=== PATIENT | female | born 1965 | race Caucasian/White ===

== ENCOUNTER 2016-06-04 16:12 | Emergency (ER) | payer OTHER ==
[~2016-06-04] VITALS: Ht 157.5 cm; Wt 63.6 kg
[~2016-06-04 16:12] MED LIST: LORA-303 PO
[2016-06-04 16:20] VITALS: BP 112/84; PULSE 97; RESP 12; O2SAT 97
--- NOTE | 2016-06-04 17:11 | ED.REPORT ---
HPI-Overdose/Alcohol Toxicity Date of Service Jun 04, 2016 ED Provider: Ash Norris MD Pt is homeless 51 y/o female with history of intermodal dispatcher alcohol abuse, depression , end stage liver disease, and anxiety who presents to the ED due to alcohol intoxication. Pt exhibits slurred speech, difficulty walking and is unable to provide relevant history in the ER. Pt was reportedly staying with friends, but they had a falling out. This resulted in her drinking at least a fifth since last night. [place] friends brought her to the ED because they did not want her in the cold tonight and were seeking a "safe haven" for her. The pt denies drinking anything but alcohol as well as taking any illicit drugs, and denies suicidal and homicidal ideation. Her initial alcohol level in the ED is 0.459. Nursing Notes Stated Complaint: ALCOHOL Chief Complaint: Substance Abuse Nursing Notes Reviewed: Yes ([employer], [employer] not reconciled) Allergies: Coded Allergies: No Known Allergies (Verified , 04/28/16) Scheduled Lorazepam (Ativan) 1 Mg Tablet 1 MG PO DIRECTED 2mg po q6hrs x 24hrs, then 1mg po q6hrs x 24hrs, then 1mg po q8hrs x 24hrs, then 1mg po q12hrs x 24hrs, then 1mg General Time Seen by Provider: 17:05 Chief Complaint Intoxicated, alcohol Hx Obtained From: Patient Arrived By: Walk-in Onset Occurred: Onset unknown Symptom Duration: Duration unknown Recent Healthcare: Recent doctor visit, Recent hospitalization Similar Sx Previous: Yes Past Medical History Past Medical History Notes: Most recent ED visits 04/22/16, 04/28/16, 04/29/16 for ETOH No admits or major complications from ETOH Past Medical History History of alcohol abuse Depresson and Anxiety Vertigo Known noncompliant end stage liver disease Past Surgical History Breast reduction Reports: Appendectomy Family History Noncontributory Smoking History Current Every Day Smoker Social History Alcohol Use: >5 per day ("drinking since high school") Drug Use: Denies drug use Other Social History: Good social support, Local resident, Homeless Ambulatory Status Independent Unable to Obtain History Unable to Obtain Due to: Intoxicated state Review of Systems Unable to Obtain ROS Intoxicated Physical Exam Initial Vital Signs Vital Signs (First) Date Time Temp Pulse Resp B/P Pulse Ox O2 Delivery O2 Flow Rate FiO2 06/04/16 16:20 36.4 97 12 112/84 97 Room Air Initial VS: Reviewed, Vital signs normal Head / Eyes: Atraumatic, Normocephalic, PERRL ENT: Mucous membranes moist, Conjunctiva normal, No scleral icterus Neck: Supple, Non-tender, Full range of motion General/Constitutional: Awake, Alert Alertness: Positive: Sleeping but arousable Behavior: Positive: Appears intoxicated moving all extremities without focal deficits cannot answer questions no physical signs of trauma Respiratory / Chest: Atraumatic, Breath sounds NL, Breath sounds = bilat, No respiratory distress adequate respirations Cardiovascular: Heart rate NL, Regular rhythm, Heart sounds NL Abdomen: Atraumatic, Soft, Non-tender Neurologic: No motor deficits, No sensory deficits Speech: Positive: Garbled, Slurred Psychiatric: Affect NL, Mood NL Skin: Atraumatic, Color NL, No rash, Warm, Dry Upper Extremity / MS: Atraumatic, Full range of motion Lower Extremity / Pelvis / MS: Atraumatic, Full range of motion, No edema Interpretation & Diagnostics Lab Results Interpretation Result Diagram: 06/04/160 06/04/16 1820 Test 06/04/16 17:46 06/04/16 18:20 Hold Urine Received (Received) White Blood Count 6.5th/mm3 (3.8-10.1) Red Blood Count 5.37mil/mm3 (3.90-5.20) Hemoglobin 16.9g/dL (12.0-15.6) Hematocrit 48.5% (35.0-46.0) Mean Corpuscular Volume 90.3fL (81-100) Mean Corpuscular Hemoglobin 31.5pg (27.0-35.0) Mean Corpuscular Hemoglobin Concent 34.8% (32.0-37.0) Red Cell Distribution Width 13.6% (12.3-15.4) Platelet Count 192bil/L (150-400) Neutrophils (%) (Auto) 43.1% (40-74) Lymphocytes (%) (Auto) 51.2% (14-46) Monocytes (%) (Auto) 3.4% (4-12) Eosinophils (%) (Auto) 1.5% (0-5) Basophils (%) (Auto) 0.5% (0-3) Sodium Level 145mEq/L (134-144) Potassium Level 3.7mEq/L (3.5-5.2) Chloride Level 100mEq/L (97-108) Carbon Dioxide Level 25mmol/L (18-29) Blood Urea Nitrogen 13mg/dL (6-24) Creatinine 0.55mg/dL (0.57-1.00) Estimat Glomerular Filtration Rate 168mL/min (>59) Glucose Level 94mg/dL (60-99) Calcium Level 8.6mg/dL (8.5-10.1) Magnesium Level 2.2mg/dL (1.6-2.6) Total Bilirubin 0.4mg/dL (0.0-1.2) Aspartate Amino Transf (AST/SGOT) 23U/L (0-50) Alanine Aminotransferase (ALT/SGPT) 15U/L (0-32) Alkaline Phosphatase 103U/L (25-150) Total Protein 7.7g/dL (6.4-8.4) Albumin 4.7g/dL (3.4-5.0) Hold Hong Top Tube Received (Received) Alcohol, Quantitative 459mg/dL (0-10) Lab Results Interpretation: CBC is normal CMP is normal, without overt findings of liver failure Alcohol severely elevated U tox negative Re-Eval/Medical Decision Med Decision/Clinical Course Assumed care at midnight from Dr. Norris. Patient is metabolized down to alcohol level of 150 or so and is fairly coherent. Not suicidal homicidal. She is currently homeless after losing her place of residence due to her drinking last night. She would like to go to crisis and this has been arranged, but not until 4 PM. She will be supported with lorazepam taper. Discharge now to wait bedtime at 4 PM. Lorazepam given now and lorazepam taper ordered to accompany her to crisis. This is a 51-year-old female with a history of alcoholism, so intoxicated she cannot provide initial history on my evaluation. The nurse tells me that the patient was brought by friends or friends/family with whom the patient been living, but who have asked the patient to move out when she became upset and irregular more heavily, and he did not feel that she was safe to leave outside in the freezing cold given her level of intoxication. She has no visible signs of trauma. Her speech is incredibly slurred, she is arousable but only mildly so and mainly falls back asleep cannot answer questions or follow commands. She smells of EtOH, but has no other physical exam findings. Lab work was obtained and is notable for severe intoxication, but is otherwise normal. The patient was observed and slowly began to arouse, on reevaluation her speech is more clear, but she starts to complain of withdrawal feeling anxious, and has a mild tremor. At this point [facility] would not commit to having a bad, they might possibly have one but are not ready to even consider until the patient's under 250. Additionally the [employer] [employer] indicates that that is potentially available is a dual diagnosis depression/chemical dependency bed, and the patient may not be a candidate without contact meant mental illness. Patient is receiving a dose of lorazepam. She has no prior hospitalizations for alcohol withdrawal. Internal and come being provider at change of shift pending ETOH metobolization and further reevaluation. Source of Hx: Old records Re-Evaluation/Progress : Time of Eval: 22:45 Re-Evaluation/Progress Note: Pt is awake and more alert. Speech is clear. Pt is withdrawn and waiting for her medication. She has no complaints at this time. Differential Diagnosis: Positive: Alcohol abuse, Anxiety, Intoxication, alcohol , Negative: Suicidal attempt, Suicidal gesture (Patient denies on re-eval (but still intoxicated)) Counseled Regarding: Diagnosis, Lab results, Need for admission Discharge & Departure Shift Change Sign-Out Patient Care Transferred: Yes Discussed Complaint(s): Yes Laboratory Evaluation: Lab evaluation discussed Response to Therapy: Improved Impression: Primary Impression: Alcohol intoxication Complication of substance-induced condition: uncomplicated Qualified Code: F10.120 - Alcohol abuse with intoxication, uncomplicated Additional Impressions: Alcohol withdrawal Complication of substance-induced condition: uncomplicated Qualified Code: F10.230 - Alcohol dependence with withdrawal, uncomplicated Alcohol abuse )( Condition at Discharge: No danger to self, No danger to others, No suicidal ideation, No homicidal ideation, Clear for alcohol rehab Disposition: Home Discharge Condition All VS Reviewed: Yes Condition: Stable Referrals: Lisa Mar (PCP) Care Transferred to: Dr. Tobar Care Transferred at: 00:00 Scribe Attestation Portions of this note were transcribed by Elmer Fisher and Erika Snyder I , Dr. Norris personally performed the history, physical exam and medical decision-making; I reviewed and confirmed the accuracy of the information in the transcribed note. Signed by: Erika Snyder and Veronique Harvey, and 0106. copies to: Lisa Mar Matthew F MD Jun 04, 2016 17:11 Elmer Fisher Jun 04, 2016 23:46 ERIKA SNYDER Jun 05, 2016 01:06 Tremayne Tobar MD Jun 05, 2016 07:03
[2016-06-04 18:38] LABS: BASOPHILS % (AUTO) 0.5 % (0-3); EOSINOPHILS % (AUTO) 1.5 % (0-5); MONOCYTES % (AUTO) 3.4 % (4-12); Mean Corpuscular Hemoglobin 31.5 pg (27.0-35.0); Mean Corpuscular Volume 90.3 fL (81-100); NEUTROPHILS % (AUTO) 43.1 % (40-74); Platelet Count 192 bil/L (150-400)
[2016-06-04 18:56] LABS: Magnesium 2.2 mg/dL (1.6-2.6)
[2016-06-04] MEDS ORDERED: LORazepam 2 mg Tablet PO ONE (23:25)
[2016-06-05 01:13] VITALS: BP 93/46; PULSE 125; RESP 12; O2SAT 91
[2016-06-05 05:32] VITALS: BP 106/72; PULSE 95; RESP 14; O2SAT 98
[2016-06-05] MEDS ORDERED: _LORazepam 2 MG Tablet PO SCH (06:40)
[2016-06-05] MEDS ORDERED: LORazepam 2 mg Tablet PO ONE (06:45)
[2016-06-05 09:17] VITALS: BP 130/78; PULSE 107; RESP 15; O2SAT 96
[2016-06-05 09:26] VITALS: BP 130/78; PULSE 107; RESP 15; O2SAT 96
== END 2016-06-05 06:45 | disposition home or self-care (01) ==
LOC: SED 16:12
DX: F10.230 Alcohol dependence with withdrawal, uncomplicated (principal); F17.200 Nicotine dependence, unspecified, uncomplicated; Z87.19 Personal history of other diseases of the digestive system; Z90.49 Acquired absence of other specified parts of digestive tract
CPT/HCPCS: 36415; 80053; 82075; 83735; 85025; 99283; G0480

== ENCOUNTER 2016-09-10 09:05 | Emergency (ER) | payer OTHER ==
[~2016-09-10] VITALS: Ht 157.5 cm; Wt 59.1 kg
[2016-09-10 09:20] VITALS: BP 105/82; PULSE 81; RESP 12; O2SAT 98
--- NOTE | 2016-09-10 09:28 | ED.REPORT ---
HPI-Medical Clearance Date of Service Sep 10, 2016 ED Provider: Isa Bradford MD A 51 year old female with history of EtOH abuse, depression, anxiety and end stage liver disease presents to the ED seeking clearance for [facility]. Patient was recently place in detox in 04/2016 and recently relapsed in 07/2016. She currently consumes a "couple bottles" of wine per day. Patient last drank this morning. Associated symptoms include shaking and appetite for the past few days. She also reports a recent injury to her LLQ. During previous periods of detox, patient has experienced tremors and chills. Patient spoke with [facility] on 09/08 but was unable to find placement due to lack of available beds. She denies fever, chills, cough, nausea, or vomiting. Nursing Notes Stated Complaint: INTOXICATION Chief Complaint: Substance Abuse Nursing Notes Reviewed: Yes Allergies: Coded Allergies: No Known Allergies (Verified , 04/28/16) Scheduled Lorazepam (Ativan) 1 Mg Tablet 1 MG PO DIRECTED 2mg po q6hrs x 24hrs, then 1mg po q6hrs x 24hrs, then 1mg po q8hrs x 24hrs, then 1mg po q12hrs x 24hrs, then 1mg General Time Seen by Provider: 09:30 Chief Complaint : Alcohol intoxication (Seeking detox) Hx Obtained From: Patient Arrived By: Walk-in Onset Occurred: 1 - 4 hours ago Symptom Duration: Since onset Location: : Abdomen Quality: Painful Severity: Current: Mild Severity: Maximum: Mild Associated with: Reports: Intoxication, Loss of appetite, Tremors Pertinent Negative: Pt denies other symptoms Recent Healthcare: No recent doctor visit, No recent hospitalization Past Medical History Past Medical History Notes: Most recent ED visits 04/22/16, 04/28/16, 04/29/16 for ETOH No admits or major complications from ETOH Past Medical History History of alcohol abuse Depresson Anxiety Vertigo Known noncompliant end stage liver disease Past Surgical History Breast reduction Reports: Appendectomy Family History Noncontributory Smoking History Current Every Day Smoker Social History Alcohol Use: >5 per day Drug Use: Denies drug use Other Social History: Good social support, Local resident, Homeless Ambulatory Status Independent Review of Systems Decreased appetite Constitutional: Denies: Chills, Fever GI: Reports: Abdominal pain (LLQ pain ), Denies: Nausea, Vomiting Neurologic: Reports: Shaking Complete sys rev & neg: except as marked. Physical Exam Initial Vital Signs Vital Signs (First) Date Time Temp Pulse Resp B/P Pulse Ox O2 Delivery O2 Flow Rate FiO2 09/10/16 09:20 36.6 81 12 105/82 98 Room Air Initial VS: Reviewed Head / Eyes: Atraumatic, Normocephalic, PERRL Neck: Supple, Non-tender, Full range of motion Extremities: Vascular intact, Neuro intact, No swelling, No tenderness Skin: Warm, Dry, No cyanosis Neurologic: Alert, Oriented, Nonfocal Psychiatric: Mood/affect normal, Behavior normal, Normal thought content General/Constitutional: Awake Respiratory / Chest: Atraumatic, Breath sounds NL, Breath sounds = bilat, No respiratory distress Cardiovascular: Heart rate NL, Regular rhythm, Heart sounds NL Abdomen: Atraumatic, Soft Trauma - General: Positive: Contusion (1 cm area subcutaneous to the left abdomen midway with a slight bruise ) Interpretation & Diagnostics Lab Results Interpretation Result Diagram: 09/10/16 1010 09/10/16 1010 Test 09/10/16 09:45 09/10/16 10:10 Hold Urine Received (Received) White Blood Count 5.0th/mm3 (3.8-10.1) Red Blood Count 4.32mil/mm3 (3.90-5.20) Hemoglobin 14.8g/dL (12.0-15.6) Hematocrit 42.7% (35.0-46.0) Mean Corpuscular Volume 98.8fL (81-100) Mean Corpuscular Hemoglobin 34.3pg (27.0-35.0) Mean Corpuscular Hemoglobin Concent 34.7% (32.0-37.0) Red Cell Distribution Width 14.5% (12.3-15.4) Platelet Count 255bil/L (150-400) Neutrophils (%) (Auto) 51.2% (40-74) Lymphocytes (%) (Auto) 38.3% (14-46) Monocytes (%) (Auto) 8.5% (4-12) Eosinophils (%) (Auto) 1.2% (0-5) Basophils (%) (Auto) 0.4% (0-3) Sodium Level 144mEq/L (134-144) Potassium Level 3.8mEq/L (3.5-5.2) Chloride Level 102mEq/L (97-108) Carbon Dioxide Level 23mmol/L (18-29) Blood Urea Nitrogen 15mg/dL (6-24) Creatinine 0.51mg/dL (0.57-1.00) Estimat Glomerular Filtration Rate 183mL/min (>59) Glucose Level 100mg/dL (60-99) Calcium Level 9.1mg/dL (8.5-10.1) Magnesium Level 2.0mg/dL (1.6-2.6) Total Bilirubin 0.3mg/dL (0.0-1.2) Aspartate Amino Transf (AST/SGOT) 30U/L (0-50) Alanine Aminotransferase (ALT/SGPT) 26U/L (0-32) Alkaline Phosphatase 78U/L (25-150) Total Protein 7.3g/dL (6.4-8.4) Albumin 4.9g/dL (3.4-5.0) Hold Hong Top Tube Received (Received) Drug Screen / Level Interp Urine positive THC Re-Eval/Medical Decision Med Decision/Clinical Course This patient presents requesting detox. She was medically cleared and there is a bed at [facility]. The patient still has alcohol on board and has not shown any significant symptoms of withdraw this point. Re-Evaluation/Progress #1: Time of Eval: 10:56 Patient Status: Condition improved Re-Evaluation/Progress Note: Patient is informed of the [employer] consult and the possible bed availability at [facility]. Re-Evaluation/Progress #2: Time of Eval: 11:32 Patient Status: Condition improved Re-Evaluation/Progress Note: Patient's questions are addressed. She understands and agrees with the plan to go to [facility] at 2pm. Counseled Regarding: Diagnosis, Lab results, Need for follow-up, When/why to return to ED Discharge & Departure Impression: Primary Impression: Alcohol dependence Substance use status: unspecified alcohol-induced disorder Qualified Code: F10.29 - Alcohol dependence with unspecified alcohol-induced disorder Disposition: Home Discharge Condition All VS Reviewed: Yes Condition: Improved Patient Instructions: Abuse of Alcohol (ED) Additional Instructions: Thank you for trusting us with your care this morning. Please go straight to your bed [facility] at 2pm following discharge. I highly recommend that you abstain from alcohol use. Use Ativan taper as prescribed. Please return to the ED if you begin to experience any new or worsening symptoms including any shortness of breath, dizziness, lightheadedness, chest pain, fever, chills, persistent nausea/vomiting. Good luck with your treatment! Referrals: Lisa Mar (PCP) [facility] Scribe Attestation Portions of this note were transcribed by Demetria Norman. I, Dr. Bradford personally performed the history, physical exam and medical decision-making; I reviewed and confirmed the accuracy of the information in the transcribed note. Signed by: Veronique Almonte, 09/10/16 1147. copies to: Lisa Mar ; [facility] Isa Bradford MD Sep 10, 2016 09:28 DEMETRIA NORMAN Sep 10, 2016 09:37
[2016-09-10 10:48] LABS: BASOPHILS % (AUTO) 0.4 % (0-3); EOSINOPHILS % (AUTO) 1.2 % (0-5); MONOCYTES % (AUTO) 8.5 % (4-12); Mean Corpuscular Hemoglobin 34.3 pg (27.0-35.0); Mean Corpuscular Volume 98.8 fL (81-100); NEUTROPHILS % (AUTO) 51.2 % (40-74); Platelet Count 255 bil/L (150-400)
[2016-09-10] MEDS ORDERED: LORazepam 1 mg Tablet PO ONE (11:35)
[2016-09-10 13:33] VITALS: BP 113/79; PULSE 99; RESP 16; O2SAT 97
== END 2016-09-10 13:35 | disposition home or self-care (01) ==
LOC: SED 09:05
DX: F10.29 Alcohol dependence with unspecified alcohol-induced disorder (principal); K72.90 Hepatic failure, unspecified without coma; F17.200 Nicotine dependence, unspecified, uncomplicated; F12.10 Cannabis abuse, uncomplicated; Z59.0 Homelessness; Z90.89 Acquired absence of other organs

== ENCOUNTER 2016-09-19 20:35 | Emergency (ER) | payer OTHER ==
[~2016-09-19] VITALS: Ht 157.5 cm; Wt 61.4 kg
[2016-09-19 20:44] VITALS: BP 120/88; PULSE 79; RESP 16; O2SAT 100
[2016-09-20 00:05] VITALS: BP 118/82; PULSE 82; RESP 16; O2SAT 100
--- NOTE | 2016-09-20 00:07 | ED.REPORT ---
HPI-Overdose/Alcohol Toxicity Date of Service September 20, 2016 ED Provider: Piyush Gibson MD Pt is a 51 y.o. homeless female with a hx of liver disease and ETOH abuse who presents to the ED seeking detox from ETOH. Pt states that her last ETOH use was 1 hour prior to arrival and that she consumed 1 pint of vodka. She states that she recently relapsed 2 days ago and typically drinks 1 pint of vodka a day. She reports associated nausea and vomiting. She denies a hx of serious withdrawal sx. Nursing Notes Stated Complaint: DETOX FOR [facility] Chief Complaint: Substance Abuse Nursing Notes Reviewed: Yes Allergies: Coded Allergies: No Known Allergies (Verified , 09/19/16) Scheduled Lorazepam (Ativan) 1 Mg Tablet 1 MG PO DIRECTED 2mg po q6hrs x 24hrs, then 1mg po q6hrs x 24hrs, then 1mg po q8hrs x 24hrs, then 1mg po q12hrs x 24hrs, then 1mg General Time Seen by Provider: 00:03 Chief Complaint Intoxicated, alcohol Initial Psychiatric Assessment: Deny suicidal intent/plan Hx Obtained From: Patient Arrived By: Walk-in Onset Occurred: 1 - 4 hours ago Symptom Duration: Since onset Similar Sx Previous: Yes Risk-Overdose/Alcohol Tox )( Suicide Risk Stratification RF Statements: Risk factors reviewed Past Medical History Past Medical History Notes: Most recent ED visits 04/22/16, 04/28/16, 04/29/16 for ETOH No admits or major complications from ETOH Past Medical History History of alcohol abuse Depression Anxiety Vertigo Known noncompliant end stage liver disease Past Surgical History Breast reduction Reports: Appendectomy Family History Noncontributory Smoking History Current Every Day Smoker Social History Alcohol Use: >5 per day Drug Use: Denies drug use Other Social History: Good social support, Local resident, Homeless Ambulatory Status Independent Review of Systems ETOH intoxication GI: Reports: Nausea, Vomiting Complete sys rev & neg: except as marked. Physical Exam Initial Vital Signs Vital Signs (First) Date Time Temp Pulse Resp B/P Pulse Ox O2 Delivery O2 Flow Rate FiO2 09/19/16 20:44 36.6 79 16 120/88 100 Room Air Initial VS: Reviewed, Vital signs normal Head / Eyes: Atraumatic, Normocephalic, PERRL Extremities: Vascular intact, Neuro intact Skin: Warm, Dry, No cyanosis General/Constitutional: Awake, Alert, Well appearing, Well developed, Well hydrated, Well nourished, Not toxic appearing Appearance / Presentation: Positive: Intoxicated Respiratory / Chest: Atraumatic, Breath sounds NL, Breath sounds = bilat, No respiratory distress Cardiovascular: Heart rate NL, Regular rhythm, Heart sounds NL, Peripheral circulation NL Abdomen: Atraumatic, Soft, Non-tender, No distention Small calcified hematoma to left lateral abdomen Neurologic: Oriented X3, Speech NL, No motor deficits Speech: Negative: Slurred Psychiatric: Affect NL, Mood NL, Not suicidal, Not homicidal, No hallucinations Interpretation & Diagnostics Lab Results Interpretation Result Diagram: 09/20/16 0035 09/20/16 0035 Test 09/20/16 00:35 White Blood Count 4.9th/mm3 (3.8-10.1) Red Blood Count 4.51mil/mm3 (3.90-5.20) Hemoglobin 15.6g/dL (12.0-15.6) Hematocrit 44.3% (35.0-46.0) Mean Corpuscular Volume 98.2fL (81-100) Mean Corpuscular Hemoglobin 34.6pg (27.0-35.0) Mean Corpuscular Hemoglobin Concent 35.2% (32.0-37.0) Red Cell Distribution Width 13.9% (12.3-15.4) Platelet Count 186bil/L (150-400) Neutrophils (%) (Auto) 42.7% (40-74) Lymphocytes (%) (Auto) 42.1% (14-46) Monocytes (%) (Auto) 9.7% (4-12) Eosinophils (%) (Auto) 3.7% (0-5) Basophils (%) (Auto) 0.8% (0-3) Prothrombin Time 9.7sec (8.1-12.5) Prothromb Time International Ratio 0.91ratio Sodium Level 139mEq/L (134-144) Potassium Level 5.3mEq/L (3.5-5.2) Chloride Level 95mEq/L (97-108) Carbon Dioxide Level 24mmol/L (18-29) Blood Urea Nitrogen 14mg/dL (6-24) Creatinine 0.53mg/dL (0.57-1.00) Estimat Glomerular Filtration Rate 175mL/min (>59) Glucose Level 98mg/dL (60-99) Calcium Level 9.3mg/dL (8.5-10.1) Magnesium Level 2.4mg/dL (1.6-2.6) Total Bilirubin 0.6mg/dL (0.0-1.2) Aspartate Amino Transf (AST/SGOT) 41U/L (0-50) Alanine Aminotransferase (ALT/SGPT) 22U/L (0-32) Alkaline Phosphatase 88U/L (25-150) Total Protein 7.6g/dL (6.4-8.4) Albumin 4.7g/dL (3.4-5.0) Lipase 53U/L (13-60) Lab Results Interpretation: Mild hyperkalemia associated with hemolysis. Re-Eval/Medical Decision Med Decision/Clinical Course Patient appears to have no medical competitions at the current time. There are no sobering services beds available. She is preregistered with sobering services and will check with them once or twice daily for an available bed. She is being discharged home, she is currently living in her car. Source of Hx: Old records Re-Evaluation/Progress #1: Time of Eval: 03:31 Re-Evaluation/Progress Note: Pt's KALEB is now 0.042 Re-Evaluation/Progress #2: Time of Eval: 04:19 Re-Evaluation/Progress Note: Pt rechecked. Discussed plan for discharge, pt understands and agrees with plan. Counseled Regarding: Diagnosis, Lab results, Need for follow-up, When/why to return to ED Discharge & Departure Impression: Primary Impression: Alcohol intoxication Complication of substance-induced condition: uncomplicated Qualified Code: F10.120 - Alcohol abuse with intoxication, uncomplicated Additional Impression: Alcohol abuse )( Condition at Discharge: No danger to self, No danger to others, No suicidal ideation, No homicidal ideation Disposition: Home Discharge Condition All VS Reviewed: Yes Condition: Improved Patient Instructions: Alcohol Withdrawal (ED) Additional Instructions: No beds are available right now it sobering services. Contact them twice daily until something becomes available. Do not drink alcohol. Referrals: Lisa Mar (PCP) Scribe Attestation Portions of this note were transcribed by Dr.Leibrand Noe personally performed the history, physical exam and medical decision-making; I reviewed and confirmed the accuracy of the information in the transcribed note. Signed by: Veronique Abdi, 09/20/16 and 0420. copies to: Lisa Mar Howard L MD September 20, 2016 00:07 GENEVIEVE ZAMORA September 20, 2016 00:14
[2016-09-20] MEDS ORDERED: Multivitamin w/Vit K Inj 10 ML, Thiamine Inj 100 MG, Folic Acid Inj 1 MG, Magnesium Sul... IV ONE ×5 (00:17)
[2016-09-20] MEDS: Ondansetron 2 mg/mL 2 mL Inj IVPUSH PRN ×2 (00:39→03:40)
[2016-09-20 00:54] LABS: BASOPHILS % (AUTO) 0.8 % (0-3); EOSINOPHILS % (AUTO) 3.7 % (0-5); MONOCYTES % (AUTO) 9.7 % (4-12); Mean Corpuscular Hemoglobin 34.6 pg (27.0-35.0); Mean Corpuscular Volume 98.2 fL (81-100); NEUTROPHILS % (AUTO) 42.7 % (40-74); Platelet Count 186 bil/L (150-400)
[2016-09-20 01:09] LABS: INR 0.91 ratio
[2016-09-20 01:18] LABS: Magnesium 2.4 mg/dL (1.6-2.6)
[2016-09-20 03:41] VITALS: BP 108/78; PULSE 88; RESP 18; O2SAT 100
[2016-09-20] MEDS ORDERED: LORazepam 2 mg Tablet PO ONE (05:45)
[2016-09-20 05:56] VITALS: BP 136/90; PULSE 75; RESP 18; O2SAT 96
== END 2016-09-20 05:44 | disposition home or self-care (01) ==
LOC: SED 20:35
DX: F10.120 Alcohol abuse with intoxication, uncomplicated (principal); F41.9 Anxiety disorder, unspecified; F17.200 Nicotine dependence, unspecified, uncomplicated; K72.90 Hepatic failure, unspecified without coma; E78.5 Hyperlipidemia, unspecified; Z59.0 Homelessness; Z90.89 Acquired absence of other organs
CPT/HCPCS: 36415; 80053; 82075; 83690; 83735; 85025; 85610; 96365; 96366; 96375; 99284; J2405; J3475; J7030

== ENCOUNTER 2016-09-24 09:21 | Emergency (ER) | payer OTHER ==
[~2016-09-24] VITALS: Ht 157.5 cm; Wt 61.4 kg
[2016-09-24 09:29] VITALS: BP 112/84; PULSE 98; RESP 12; O2SAT 100
--- NOTE | 2016-09-24 10:03 | ED.REPORT ---
HPI-Overdose/Alcohol Toxicity Date of Service September 24, 2016 ED Provider: Fareed Smith DO Pt is a 51 y.o. female with a hx of EOTH abuse and noncompliant end stage liver disease who presents to the ED with alcohol intoxication seeking clearance for a detox facility. Pt reports that her last ETOH use was at 0800 today. She reports that she has a bed at [facility] today and will be going to for further care on Monday. Pt currently reports shaking and chills. She denies a hx of withdrawal seizure. Nursing Notes Stated Complaint: DETOX Chief Complaint: Substance Abuse Nursing Notes Reviewed: Yes Allergies: Coded Allergies: No Known Allergies (Verified , 09/19/16) Scheduled Lorazepam (Ativan) 1 Mg Tablet 1 MG PO DIRECTED 2mg po q6hrs x 24hrs, then 1mg po q6hrs x 24hrs, then 1mg po q8hrs x 24hrs, then 1mg po q12hrs x 24hrs, then 1mg Scheduled PRN Lorazepam (Ativan) 1 Mg Tablet 1 MG PO TID PRN PRN For Anxiety Take two tablets by mouth every 6 hours for 24 hours, then take 1 tablet by mouth every 6 hours for 48 hours, then take 1 tablet by mouth every 12 hours for 24 hours. General Time Seen by Provider: 10:03 Chief Complaint Intoxicated, alcohol Modifying Factors: Intentional Initial Psychiatric Assessment: Deny suicidal intent/plan Hx Obtained From: Patient Arrived By: Walk-in Onset Occurred: 1 - 4 hours ago Symptom Duration: Since onset Severity: Current: No pain currently Severity: Maximum: No pain Similar Sx Previous: Yes Risk-Overdose/Alcohol Tox )( Suicide Risk Stratification : Alcohol use RF Statements: Risk factors reviewed Past Medical History Past Medical History Notes: Most recent ED visits 04/22/16, 04/28/16, 04/29/16 for ETOH No admits or major complications from ETOH Past Medical History History of alcohol abuse Depression Anxiety Vertigo Known noncompliant end stage liver disease Past Surgical History Breast reduction Reports: Appendectomy Family History Noncontributory Smoking History Current Every Day Smoker Social History Alcohol Use: >5 per day Drug Use: Denies drug use Other Social History: Good social support, Local resident, Homeless Ambulatory Status Independent Review of Systems Intoxication, ETOH Constitutional: Reports: Chills Neurologic: Reports: Shaking Complete sys rev & neg: except as marked. Physical Exam Initial Vital Signs Vital Signs (First) Date Time Temp Pulse Resp B/P Pulse Ox O2 Delivery O2 Flow Rate FiO2 09/24/16 09:29 36.4 98 12 112/84 100 Room Air Initial VS: Reviewed Head / Eyes: Atraumatic, Normocephalic, PERRL Extremities: Vascular intact, Neuro intact Skin: Warm, Dry, No cyanosis General/Constitutional: Awake, Alert, Well appearing, Well developed, Well hydrated, Well nourished, Not toxic appearing Appearance / Presentation: Positive: Intoxicated Smells of alcohol. Respiratory / Chest: Atraumatic, Breath sounds NL, Breath sounds = bilat, No respiratory distress Cardiovascular: Heart rate NL, Regular rhythm, Heart sounds NL, Peripheral circulation NL Abdomen: Atraumatic, Soft, Non-tender, No guarding, No rebound, No distention Neurologic: Oriented X3, Speech NL Speech: Negative: Slurred Psychiatric: Not suicidal, Not homicidal, No hallucinations Interpretation & Diagnostics Lab Results Interpretation Result Diagram: 09/24/16 1035 09/24/16 1035 Test 09/24/16 10:35 09/24/16 12:14 White Blood Count 7.4th/mm3 (3.8-10.1) Red Blood Count 4.56mil/mm3 (3.90-5.20) Hemoglobin 16.0g/dL (12.0-15.6) Hematocrit 44.6% (35.0-46.0) Mean Corpuscular Volume 97.8fL (81-100) Mean Corpuscular Hemoglobin 35.1pg (27.0-35.0) Mean Corpuscular Hemoglobin Concent 35.9% (32.0-37.0) Red Cell Distribution Width 13.8% (12.3-15.4) Platelet Count 189bil/L (150-400) Neutrophils (%) (Auto) 62.4% (40-74) Lymphocytes (%) (Auto) 31.2% (14-46) Monocytes (%) (Auto) 4.5% (4-12) Eosinophils (%) (Auto) 1.2% (0-5) Basophils (%) (Auto) 0.4% (0-3) Sodium Level 143mEq/L (134-144) Potassium Level 4.2mEq/L (3.5-5.2) Chloride Level 98mEq/L (97-108) Carbon Dioxide Level 21mmol/L (18-29) Blood Urea Nitrogen 13mg/dL (6-24) Creatinine 0.50mg/dL (0.57-1.00) Estimat Glomerular Filtration Rate 187mL/min (>59) Glucose Level 90mg/dL (60-99) Calcium Level 8.7mg/dL (8.5-10.1) Total Bilirubin 0.4mg/dL (0.0-1.2) Aspartate Amino Transf (AST/SGOT) 28U/L (0-50) Alanine Aminotransferase (ALT/SGPT) 14U/L (0-32) Alkaline Phosphatase 96U/L (25-150) Total Protein 7.3g/dL (6.4-8.4) Albumin 4.7g/dL (3.4-5.0) Thyroid Stimulating Hormone (TSH) 1.130uIU/mL (0.450-4.500) Hold Urine Received (Received) Re-Eval/Medical Decision Source of Hx: Old records Re-Evaluation/Progress : Time of Eval: 12:24 Re-Evaluation/Progress Note: Pt is clear for detox facility. [facility] bed available at 1300. Counseled Regarding: Diagnosis, Lab results, Need for follow-up, When/why to return to ED Discharge & Departure Impression: Primary Impression: Alcohol intoxication Complication of substance-induced condition: uncomplicated Qualified Code: F10.120 - Alcohol abuse with intoxication, uncomplicated Additional Impression: Alcohol withdrawal Complication of substance-induced condition: uncomplicated Qualified Code: F10.230 - Alcohol dependence with withdrawal, uncomplicated )( Condition at Discharge: No danger to self, No danger to others, No suicidal ideation, No homicidal ideation, Clear for alcohol rehab Disposition: Home Discharge Condition All VS Reviewed: Yes Condition: Improved Additional Instructions: Go straight to [facility]. Do not consume alcohol. I have provided a prescription for an alcohol taper for your withdrawal symptoms. I wish you the best with your recovery. Referrals: Lisa Mar (PCP) Scribe Attestation Portions of this note were transcribed by Genevieve Estevez. I, Dr. Smith personally performed the history, physical exam and medical decision-making; I reviewed and confirmed the accuracy of the information in the transcribed note. Signed by: Veronique Abdi, 09/24/16 and 1225 copies to: Lisa Mar Gary R DO September 24, 2016 10:03 GENEVIEVE ESTEVEZ September 24, 2016 10:26
[2016-09-24] MEDS ORDERED: LORazepam 2 mg Tablet PO ONE (10:25)
[2016-09-24 10:50] LABS: BASOPHILS % (AUTO) 0.4 % (0-3); EOSINOPHILS % (AUTO) 1.2 % (0-5); MONOCYTES % (AUTO) 4.5 % (4-12); Mean Corpuscular Hemoglobin 35.1 pg (27.0-35.0); Mean Corpuscular Volume 97.8 fL (81-100); NEUTROPHILS % (AUTO) 62.4 % (40-74); Platelet Count 189 bil/L (150-400)
[2016-09-24] MEDS ORDERED: LORA-303 PO (12:22)
[2016-09-24 14:26] VITALS: BP 108/75; PULSE 111; O2SAT 95
[2016-09-24 15:16] VITALS: BP 108/75; PULSE 111; RESP 12; O2SAT 95
== END 2016-09-24 15:17 | disposition home or self-care (01) ==
LOC: SED 09:21
DX: F10.220 Alcohol dependence with intoxication, uncomplicated (principal); F10.230 Alcohol dependence with withdrawal, uncomplicated; K72.90 Hepatic failure, unspecified without coma; F17.200 Nicotine dependence, unspecified, uncomplicated; Z59.0 Homelessness

== ENCOUNTER 2016-10-03 19:58 | Emergency (ER) | payer OTHER ==
[~2016-10-03] VITALS: Ht 157.5 cm; Wt 61.4 kg
[2016-10-03 20:05] VITALS: BP 153/102; PULSE 114; RESP 20; O2SAT 96
--- NOTE | 2016-10-03 22:24 | ED.REPORT ---
HPI-Overdose/Alcohol Toxicity Date of Service October 03, 2016 ED Provider: Piyush Gibson MD A 51 year old female with a medical history including alcohol abuse and noncompliant end stage liver disease presents to the ED requesting assistance with alcohol detox. The patient's last alcoholic drink was at 1100 this morning. She now reports tremor and anxiety. The patient denies other symptoms. She was in the ED with similar symptoms on 09/24/16 and was sent to [facility] with plans for admission to [facility] last week. The patient missed her appointment there but has a new admission date next month. She requests placement in [facility] today. Nursing Notes Stated Complaint: ALCOHOL WITHDRAWALS Chief Complaint: Substance Abuse Nursing Notes Reviewed: Yes Allergies: Coded Allergies: No Known Allergies (Verified , 10/03/16) Scheduled Lorazepam (Ativan) 1 Mg Tablet 1 MG PO DIRECTED 2mg po q6hrs x 24hrs, then 1mg po q6hrs x 24hrs, then 1mg po q8hrs x 24hrs, then 1mg po q12hrs x 24hrs, then 1mg Scheduled PRN Lorazepam (Ativan) 1 Mg Tablet 1 MG PO TID PRN PRN For Anxiety Take two tablets by mouth every 6 hours for 24 hours, then take 1 tablet by mouth every 6 hours for 48 hours, then take 1 tablet by mouth every 12 hours for 24 hours. General Time Seen by Provider: 22:22 Chief Complaint Other (Alcohol Detox) Hx Obtained From: Patient Arrived By: Walk-in Onset Occurred: 9 - 12 hours ago Symptom Duration: Since onset Severity: Current: No pain currently Severity: Maximum: No pain Pertinent Negative: Relieved by nothing Related History: Reports: Alcoholism, Anxiety, Depression, EtOH withdrawal Immunizations: Tetanus up to date Recent Healthcare: Recent doctor visit Similar Sx Previous: Yes Past Medical History Past Medical History Notes: Most recent ED visits 04/22/16, 04/28/16, 04/29/16 for ETOH No admits or major complications from ETOH Past Medical History History of alcohol abuse Depression Anxiety Vertigo Known noncompliant end stage liver disease Ovarian tumor Past Surgical History Breast reduction Ovarian tumor removal Reports: Appendectomy Family History Noncontributory Smoking History Current Every Day Smoker Social History Alcohol Use: >5 per day Drug Use: Denies drug use Other Social History: Good social support, Local resident, Homeless Ambulatory Status Independent Review of Systems + Alcohol detox assistance request Constitutional: Denies: Fever Respiratory: Denies: Non-productive cough, Shortness of breath GI: Denies: Diarrhea, Vomiting Neurologic: Reports: Shaking (Tremor) Psychiatric: Reports: Anxiety Complete sys rev & neg: except as marked. Physical Exam Initial Vital Signs Vital Signs (First) Date Time Temp Pulse Resp B/P Pulse Ox O2 Delivery O2 Flow Rate FiO2 10/03/16 20:05 36.4 114 20 153/102 96 Room Air Initial VS: Reviewed, Vital signs abnormal Head / Eyes: Atraumatic, Normocephalic ENT: Conjunctiva normal, No scleral icterus Neck: Supple, Full range of motion General/Constitutional: Awake, Alert Respiratory / Chest: Breath sounds NL, Breath sounds = bilat, No respiratory distress Cardiovascular: Regular rhythm, Heart sounds NL Heart Rate / Rhythm: Positive: Tachycardia Abdomen: Soft Tenderness/Guarding/Rebound: Positive: Tender RUQ... Well-healed abdominal scars Neurologic: Oriented X3, Speech NL Movement Abnormality: Positive: Tremor Skin: Warm, Dry Flushed Interpretation & Diagnostics Lab Results Interpretation Result Diagram: 10/04/16 0008 10/04/16 0008 Test 10/04/16 00:08 10/04/16 00:10 White Blood Count 5.3th/mm3 (3.8-10.1) Red Blood Count 4.42mil/mm3 (3.90-5.20) Hemoglobin 15.4g/dL (12.0-15.6) Hematocrit 42.3% (35.0-46.0) Mean Corpuscular Volume 95.7fL (81-100) Mean Corpuscular Hemoglobin 34.8pg (27.0-35.0) Mean Corpuscular Hemoglobin Concent 36.4% (32.0-37.0) Red Cell Distribution Width 13.8% (12.3-15.4) Platelet Count 214bil/L (150-400) Neutrophils (%) (Auto) 46.8% (40-74) Lymphocytes (%) (Auto) 43.7% (14-46) Monocytes (%) (Auto) 7.7% (4-12) Eosinophils (%) (Auto) 0.8% (0-5) Basophils (%) (Auto) 0.4% (0-3) Prothrombin Time 10.0sec (8.1-12.5) Prothromb Time International Ratio 0.94ratio Sodium Level 140mEq/L (134-144) Potassium Level 4.3mEq/L (3.5-5.2) Chloride Level 98mEq/L (97-108) Carbon Dioxide Level 20mmol/L (18-29) Blood Urea Nitrogen 13mg/dL (6-24) Creatinine 0.53mg/dL (0.57-1.00) Estimat Glomerular Filtration Rate 175mL/min (>59) Glucose Level 81mg/dL (60-99) Calcium Level 9.2mg/dL (8.5-10.1) Phosphorus Level 3.2mg/dL (2.5-4.9) Magnesium Level 2.1mg/dL (1.6-2.6) Total Bilirubin 0.5mg/dL (0.0-1.2) Aspartate Amino Transf (AST/SGOT) 28U/L (0-50) Alanine Aminotransferase (ALT/SGPT) 19U/L (0-32) Alkaline Phosphatase 90U/L (25-150) Total Protein 7.7g/dL (6.4-8.4) Albumin 4.8g/dL (3.4-5.0) Lipase 30U/L (13-60) Hold Hong Top Tube Received (Received) Lab values outside NL range: no clinical significance. Re-Eval/Medical Decision Med Decision/Clinical Course 51-year-old female who presents with intoxication and desires detox. She went through detox at [facility] last week and was supposed to go to [facility] in [place], but failed to accomplish the transportation portion of that plan. She now has been drinking for 4 days. She has a new bed date set up for October 21. She was reevaluated, rehydrated, and given a banana bag. She was given Valium per the [facility] protocol. Her labs were unremarkable. She is medically cleared and arrangements were made for her to be transferred to [facility] for repeat detox. Source of Hx: Old records Re-Evaluation/Progress #1: Time of Eval: 23:13 Patient Status: Condition improved Re-Evaluation/Progress Note: Patient rechecked. Discussed with patient [facility] consult. Re-Evaluation/Progress #2: Time of Eval: 00:50 Patient Status: Condition improved Re-Evaluation/Progress Note: Patient's IV is started and the banana bag is hung Waiting for first dose of Valium Re-Evaluation/Progress #3: Time of Eval: 04:01 Patient Status: Condition improved Re-Evaluation/Progress Note: Patient rechecked. Re-Evaluation/Progress #4: Time of Eval: 06:08 Patient Status: Condition improved Re-Evaluation/Progress Note: Discussed with patient lab results, diagnosis, and plan for discharge to [facility]. Follow-up and return to the ER instructions given. Patient agrees with plan for care and all questions were addressed. Consultation #1: Call Returned at: 23:[address] Associate Justice: Agrees with eval, Agrees with plan Note: [facility]: May have female bed at 1100 tomorrow. Consultation #2: Call Returned at: 06:[address] Associate Justice: Agrees with eval, Agrees with plan Note: [facility]: Has female bed now and will screen patient Counseled Regarding: Diagnosis, Lab results, Need for follow-up, When/why to return to ED Discharge & Departure Impression: Primary Impression: Acute alcohol intoxication Complication of substance-induced condition: uncomplicated Qualified Code: F10.120 - Alcohol abuse with intoxication, uncomplicated )( Condition at Discharge: No danger to self, No danger to others, No suicidal ideation, No homicidal ideation, Clear for alcohol rehab Disposition: Home Discharge Condition All VS Reviewed: Yes Condition: Improved Patient Instructions: Alcohol Withdrawal (GEN) Additional Instructions: Go directly to [facility]. See Ativan prepack for taper instructions. Referrals: Lisa Mar (PCP) Scribe Attestation Portions of this note were transcribed by Haylee Villegas. I, Dr. Gibson, personally performed the history, physical exam, and medical decision-making; I reviewed and confirmed the accuracy of the information in the transcribed note. Signed by: Veronique Fernández, 10/04/2016, 06:15 copies to: Lisa Mar Howard L MD October 03, 2016 22:24 HAYLEE VILLEGAS October 03, 2016 22:31
[2016-10-03] MEDS ORDERED: Thiamine Inj 100 MG, Folic Acid Inj 1 MG, Magnesium Sulfate 50% Inj 2 GM, Multivitamins... IV ONE ×5 (23:20)
[2016-10-03 23:53] VITALS: BP 113/79; PULSE 91; RESP 12; O2SAT 98
[2016-10-04 00:22] LABS: BASOPHILS % (AUTO) 0.4 % (0-3)
[2016-10-04 00:28] LABS: INR 0.94 ratio
[2016-10-04 00:37] LABS: EOSINOPHILS % (AUTO) 0.8 % (0-5); MONOCYTES % (AUTO) 7.7 % (4-12); Mean Corpuscular Hemoglobin 34.8 pg (27.0-35.0); Mean Corpuscular Volume 95.7 fL (81-100); NEUTROPHILS % (AUTO) 46.8 % (40-74); Platelet Count 214 bil/L (150-400)
[2016-10-04 01:03] LABS: Magnesium 2.1 mg/dL (1.6-2.6); Phosphorus 3.2 mg/dL (2.5-4.9)
[2016-10-04 01:17] VITALS: BP 102/70; PULSE 84; RESP 15; O2SAT 92
[2016-10-04 03:35] VITALS: BP 113/78; PULSE 81; RESP 13; O2SAT 94
[2016-10-04 04:34] VITALS: BP 109/74; PULSE 79; RESP 16; O2SAT 93
[2016-10-04] MEDS ORDERED: _LORazepam 2 MG Tablet PO SCH (06:10)
[2016-10-04] MEDS ORDERED: Ondansetron 2 mg/mL 2 mL Inj ONE (06:23)
[2016-10-04] MEDS ORDERED: LORazepam 2 mg Tablet PO ONE (08:30)
== END 2016-10-04 08:35 | disposition home or self-care (01) ==
LOC: SED 19:58
DX: F10.220 Alcohol dependence with intoxication, uncomplicated (principal); F41.9 Anxiety disorder, unspecified; F32.9 Major depressive disorder, single episode, unspecified; K72.90 Hepatic failure, unspecified without coma; F17.200 Nicotine dependence, unspecified, uncomplicated; Z59.0 Homelessness
CPT/HCPCS: 36415; 80053; 82075; 83690; 83735; 84100; 85025; 85610; 96365; 96366; 96375; 96376; 99285; J2405; J3360; J3475; J7030